=== PATIENT | female | born 1995 | race African-American/Black ===

== ENCOUNTER 2017-09-05 16:35 | Emergency (ER) | payer BC, OTHER ==
[~2017-09-05] VITALS: Ht 162.6 cm; Wt 123.9 kg
[~2017-09-05 16:35] MED LIST: FRRS300 MT; ONDA4TAB46 PO; PRENTAB26 PO; Proair HFA INH
[2017-09-05 16:41] VITALS: BP 133/79; PULSE 96; TEMP 37; O2SAT 99; Ht 162.6 cm; Wt 123.9 kg
--- NOTE | 2017-09-05 17:37 | DIAGNOSTIC IMAGING REPORT ---
LEFT AXILLARY ULTRASOUND CLINICAL HISTORY: Left axillary infection. COMPARISON STUDY: No previous studies for comparison. FINDINGS: There is a complex hypoechoic 22 x 12 x 21 mm left axillary lesion. There is mild peripheral vascularity. Diagnostic considerations include a pathologic lymph node or developing phlegmon/abscess. Clinical and imaging follow-up is recommended. IMPRESSION: 22 x 12 x 21 mm left axillary hypoechoic lesion, likely representing either a pathologic lymph node or developing abscess/phlegmon. Clinical follow-up is recommended. A repeat ultrasound subsequent to antibiotic therapy should be considered. Electronically signed by: Nazario Falk M.D. 09/05/2017 5:36 PM Dictated Date/Time: 09/05/2017 5:32 PM
[2017-09-05] MEDS ORDERED: CEPH500C2 PO (17:49)
[2017-09-05] MEDS ORDERED: CEPHALEXIN 500MG HOME PACK 1 EA BTL PO ONE (18:00)
--- NOTE | 2017-09-05 18:17 | EMERGENCY ROOM VISIT NOTE ---
History First contact with patient: 16:44 Chief Complaint: OTHER COMPLAINT Stated Complaint: PUSS COMING OF ARM History of Present Illness The patient is a 22 year old female who presents to the Emergency Room with complaints of pain and swelling to the left axilla states there has been minimal drainage from the area who has been squeezing out for the past few days. She states she has had problems with this before but has not seen a doctor for it. She is 29 weeks . Patient denies chest pain, dyspnea, numbness, tingling, fevers, nausea, vomiting or any other medical complaints. Tetanus is current. Review of Systems An 10 system review of systems was completed with positives and pertinent negatives listed in the HPI. Past Medical/Surgical History Medical Problems: (1) Bilateral lower extremity edema (2) labor in second trimester (3) uterine contractions in third trimester, antepartum Social History Smoking Status: Never Smoker Alcohol Use: none Drug Use: none Marital Status: single Housing Status: lives with family Current/Historical Medications Scheduled Cephalexin Monohydrate (Keflex), 500 MG PO QID Ferrous Sulfate (Ferrous Sulfate), 325 MG MT DAILYBB Multivit/Min/Iron/Fol Ac/Pren ( Vitamin), 1 TAB PO DAILY Scheduled PRN Ondansetron Hcl (Zofran), 4 MG PO Q4 PRN for Nausea [Proair HFA], 2 PUFFS INH UD PRN for Asthma Symptoms Physical Exam Vital Signs Date Time Temp Pulse Resp B/P (MAP) Pulse Ox O2 Delivery O2 Flow Rate FiO2 09/05/17 16:41 37.0 96 18 133/79 99 Room Air Physical Exam VITALS: Vitals are noted on the nurse's note and reviewed by myself. Vital signs stable. GENERAL: Pleasant female, in no acute distress, nondiaphoretic, well-developed well-nourished. SKIN: Capillary reflex less than 2 seconds. Left axilla tender to palpation with no fluctuance or active drainage with minimal erythema without lymphangitis. HEENT: Normocephalic. PERRLA. EOMI. Nares patent. Mucous membranes moist. Neck is supple without nuchal rigidity. HEART: Regular rate and rhythm without murmurs gallops or rubs. LUNGS: Clear to auscultation bilaterally without wheezes, rales or rhonchi. No retractions or accessory muscle use. ABDOMEN: Positive bowel sounds x 4. Normal tympanic percussion. Soft, 29 weeks , nontender, without masses or organomegaly. Kwong sign negative. No guarding or rebound tenderness. MUSCULOSKELETAL: No gross musculoskeletal defects. No pedal edema. No calf tenderness. NEURO: Patient was alert and oriented to person place and time. Normal sensation to light and sharp touch. No focal neurological deficits. Medical Decision & Procedures Medications Administered Medications (Trade) Dose Ordered Sig/Dario Route Start Time Stop Time Status Last Admin Dose Admin Cephalexin Monohydrate (Keflex 500MG Home Pack) 1 homepack NOW ONCE PO 09/05/17 18:00 09/05/17 18:01 DC 09/05/17 17:58 1 HOMEPACK ED Course Prior records reviewed and summarized as above. Triage Nursing notes reviewed. The patient's history was concerning for swelling and redness of the skin. Differential diagnosis: Etiologies such as HS, cellulitis, abscess, MRSA infection, DVT, necrotizing fasciitis, dermatitis, drug eruption, as well as others were entertained.. Physical examination: The physical examination was consistent with cellulitis ER treatment provided: Keflex On reassessment the patient felt better. Diagnostics interpreted by me: Imaging studies: LEFT AXILLARY ULTRASOUND CLINICAL HISTORY: Left axillary infection. COMPARISON STUDY: No previous studies for comparison. FINDINGS: There is a complex hypoechoic 22 x 12 x 21 mm left axillary lesion. There is mild peripheral vascularity. Diagnostic considerations include a pathologic lymph node or developing phlegmon/abscess. Clinical and imaging follow-up is recommended. IMPRESSION: 22 x 12 x 21 mm left axillary hypoechoic lesion, likely representing either a pathologic lymph node or developing abscess/phlegmon. Clinical follow-up is recommended. A repeat ultrasound subsequent to antibiotic therapy should be considered. Electronically signed by: Nazario Falk M.D. 09/05/2017 5:36 PM Dictated Date/Time: 09/05/2017 5:32 PM This appears to be cellulitis versus HS. patient states she has had this problem before. She has not seen a doctor for it. She has been squeezing at the area. There was no active drainage. Start antibiotics and advised to avoid touching the area and try warm compresses. She is advised follow-up family care in a few days here in the ER sooner for fevers, spreading infection , drainage, worsening signs or symptoms or as needed. By the evaluation outlined above emergent etiologies such as abscess, necrotizing fasciitis, DVT, as well as others were deemed relatively unlikely. The pt informed about the findings as listed above. All questions were answered and pleased with the treatment. Return instructions were outlined and the patient was discharged in stable condition. Outpatient prescription management: Keflex Referral: The patient was referred back to primary care physician for follow-up in 2 to 3 days for a recheck of the current condition. The chart was completed utilizing [employer] voice recognition software. Grammatical errors, random word insertions, pronoun errors, and incomplete sentences are an occassional consequence of this system due to software limitations, ambient noise, and hardware issues. Any formal questions or concerns about the content, text, or information contained within the body of this dictation should be directly addressed to the physician records assistant for clarification. Medical Decision As above Medication Reconcilliation Current Medication List: was personally reviewed by me Blood Pressure Screening Patient's blood pressure: Normal blood pressure Impression Primary Impression: Cellulitis of axilla, left Departure Information Dispostion Home / Self-Care Condition GOOD Prescriptions Cephalexin Monohydrate (KEFLEX) 500 Mg Cap 500 MG PO QID for 9 Days, #36 CAP Prov: Elzbieta Stern ., KWAKU 09/05/17 Forms WORK / SCHOOL INSTRUCTIONS, HOME CARE DOCUMENTATION FORM, IMPORTANT VISIT INFORMATION Patient Instructions Cellulitis - [facility], [facility] Additional Instructions Cephalexin(Keflex) 500mg: Take one pill four times daily for 10 days for your skin infection. All antibiotics can cause diarrhea. If this occurs and you feel worse or it does not resolve in 1-2 days follow up with your doctor or return to the Emergency Department as this could be signs of serious underlying problems. Any medication can cause an allergic reaction, stop the pills immediately and return to the ER for rash, hives, breathing difficulties, or swelling. Avoid touching the area. Do not squeeze at it. Acetaminophen(Tylenol) may be used for fever or pain. Use 1000mg every six hours as needed. Avoid using more than 4000mg in a 24 hour period. Warm compresses to the affected area 4 times daily for 15-20 minutes. Rest and drink plenty of fluids. Continue current medications. Return to the ER for severe pain, persistent fevers, spreading redness, or any worsening of your condition. Follow up with your primary physician within 2-3 days for a recheck of the current condition.
== END 2017-09-05 18:00 | disposition home or self-care (01) ==
LOC: C.EDB 16:37 → C.EDD 18:00
DX: L03.112 Cellulitis of left axilla (principal); Z3A.29 29 weeks gestation of pregnancy

== ENCOUNTER 2017-09-13 19:30 | Outpatient (CLI) | payer BC, OTHER ==
[~2017-09-13] VITALS: Ht 162.6 cm; Wt 128.6 kg
[~2017-09-13 19:30] MED LIST changes: +CEPH500C2 PO
[2017-09-13 20:05] VITALS: Ht 162.6 cm; Wt 128.6 kg
--- NOTE | 2017-09-13 21:29 | HISTORY & PHYSICAL EXAMINATION ---
DATE OF ADMISSION: 09/13/2017 CHIEF COMPLAINT: Intrauterine 30 weeks 1 day, absence of movement, recent fall. HISTORY OF PRESENT ILLNESS: The patient is a 22-year-old 11, para 2, EDC for this 11/21/2017, making her 30 weeks and 1 day. She has a history of cervical dysplasia being followed. OBSTETRICAL HISTORY: As follows, 2015 she had a girl, 7 pounds 4 ounce, emergency for nonreassuring heart rate tracing at 41+ weeks gestation. 2017, she had a boy, 6 pounds 8 ounces, repeat section at 39 weeks. States she fell out of bed about 11:00 a.m., fell on her left side. She was concerned because she did not feel the baby move. She tried drinking soda and sugar, could not get him to move. She did not complain of any leakage of fluids or bloody discharge and she called the answering service and was told to come to the hospital for evaluation. PAST MEDICAL HISTORY: Two children in good health. ALLERGIES: ALLERGIC TO LASIX. PAST SURGICAL HISTORY: She had wisdom teeth removed, had 2 , recently started antibiotics for an abscess in her left axilla. SOCIAL HISTORY: No smoking. No alcohol intake. Mostly ssbd-cy-etyn mom. FAMILY HISTORY: Mom is 58. She has had breast cancer recurrence. Father 50, diabetic, decreased eyesight. There are no biological brothers or sisters. REVIEW OF SYSTEMS: She does complain of migraine headaches. PHYSICAL EXAMINATION: GENERAL: Well-developed, well-nourished, 22-year-old black female, alert, oriented x3, and cooperative, in no acute distress, appears stated age. EYES: Conjunctivae are pink. Sclerae white. No evidence of jaundice. EARS: Had normal light reflex bilaterally. HEART: Had regular rhythm. S1, S2 are normal. NECK: Supple. Trachea midline. Thyroid is not enlarged. ABDOMEN: Consistent with 30-week . Well-healed Pfannenstiel scar. No abdominal tenderness. No CVA tenderness. MUSCULOSKELETAL: No calf tenderness. IMPRESSIONS OF THIS CASE: Recent fall. History of 2 previous sections and decreased movement.
--- NOTE | 2017-09-13 22:49 | DIAGNOSTIC IMAGING REPORT ---
LTD 1 OR MORE FETUSES CLINICAL HISTORY: Cervical Length/ fluid levels TECHNIQUE: Ultrasound COMPARISON STUDY: None FINDINGS: Single, viable intrauterine . Breech presentation. heart rate 1 43 bpm. Maternal cervix is closed. Length is 4.4 cm. Amniotic fluid index 16 cm. Distended gestational age is 31 weeks. Posterior placenta. IMPRESSION: 1. Single, viable intrauterine of approximately 31 weeks gestational age. 2. Breech presentation. 3. The maternal cervix is closed having a length of 4.4 cm.. 4. Amniotic fluid index 16.1. 5. heart rate is confirmed at 143 bpm The above report was generated using voice recognition software. It may contain grammatical, syntax or spelling errors. Electronically signed by: Cortez Webster M.D. 09/13/2017 10:47 PM Dictated Date/Time: 09/13/2017 10:45 PM
== END 2017-09-13 23:03 | disposition home or self-care (01) ==
LOC: C.LD 19:30 → C.OPB 19:30
PROVIDERS: ATTEND Obstetrics & Gynecology
DX: O12.02 Gestational edema, second trimester (principal); O62.9 Abnormality of forces of labor, unspecified; Z3A.28 28 weeks gestation of pregnancy

== ENCOUNTER 2017-09-18 01:51 | Emergency (ER) | payer BC, OTHER ==
[~2017-09-18] VITALS: Ht 162.6 cm; Wt 121.3 kg
[~2017-09-18 01:51] MED LIST changes: -CEPH500C2 PO
[2017-09-18 01:54] VITALS: TEMP 36.8; Ht 162.6 cm; Wt 121.3 kg
[2017-09-18] MEDS ORDERED: LIDOCAINE 1% BUFFERED INJ 20 ML VIAL ONE (02:07)
[2017-09-18] MEDS ORDERED: PRENTAB26 PO (02:11)
[2017-09-18] MEDS ORDERED: ONDA4TAB46 PO (02:12)
[2017-09-18] MEDS ORDERED: CEPH500C2 PO (02:17)
--- NOTE | 2017-09-18 02:27 | EMERGENCY ROOM VISIT NOTE ---
ED Visit Note First contact with patient: 02:03 CHIEF COMPLAINT: Infection of the left axilla HISTORY OF PRESENT ILLNESS: This 22-year-old patient presents to the emergency department after they noticed a hard, red, tender area left axilla has gotten progressively worse over the past 2 weeks he was seen here last week and started on Keflex. It is slowly getting larger, more painful and tender. No fever, chills, or loss of appetite. There has been drainage from the area. There was no injury to the area preceding the infection. They rate the pain as mild and 2/10. Tetanus shot is up to date. They have tried squeezing at it. The patient is not diabetic. The patient has not had a history of subcutaneous abscesses. Patient is 30 weeks . REVIEW OF SYSTEMS: A review of systems was performed with positives and pertinent negatives listed in the history of present illness. All other systems were reviewed and are negative. ALLERGIES: Latex MEDICATIONS: PMH: Reviewed SOCIAL HISTORY: No drug use PHYSICAL EXAM: Vital Signs: Reviewed Nurse's notes, vital signs stable. GENERAL : Pleasant female, no acute distress, non toxic in appearance, well-developed well-nourished. SKIN: There is an erythematous indurated area left axillary which measures about 2 cm in diameter. It is fluctuant but there is no pointing or drainage. There is a zone of inflammation around it but no lymphangitis. Capillary refill less than 2 seconds. MUSCULOSKELETAL: There is no limitation of the range of motion of the arm. EMERGENCY DEPARTMENT COURSE: I examined the patient. After saline and Betadine cleansing and 2 mL of 1% buffered lidocaine anesthesia, the abscess was incised with a number 11 scalpel blade. A large amount of purulent material was released with more expressed by pressure. A swab was obtained for culture. The abscess cavity was further probed with a needle light truck driver and the deep pocket expressed. The abscess cavity was then copiously irrigated with sterile saline under pressure. The area was then packed with iodoform soaked packing. The area was cleaned with sterile saline and dressed with bulky bandage. The patient tolerated the procedure well. Patient was advised to follow-up in 2 days with the family care doctor for wound recheck and packing. She was advised not to open up the packing container that is given to her in the ER and bring this to her appointment. She is advised to return to ER immediately for fevers, spreading infection, worsening signs or symptoms or as needed. She is advised to continue her antibiotics. Bedside ultrasound shows active fetus. This was shown to the patient. The patient was discharged home in stable condition. DIAGNOSIS: Abscess of the left axillary DISCHARGE INSTRUCTIONS & TREATMENT: As below Current/Historical Medications Scheduled Cephalexin Monohydrate (Keflex), 500 MG PO QID Multivit/Min/Iron/Fol Ac/Pren ( Vitamin), 1 TAB PO DAILY Scheduled PRN Ondansetron Hcl (Zofran), 4 MG PO Q4H PRN for Nausea Allergies Coded Allergies: Latex (Verified Allergy, Intermediate, Swelling,itchiness and hives, ) Vital Signs Date Time Temp Pulse Resp B/P (MAP) Pulse Ox O2 Delivery O2 Flow Rate FiO2 09/18/17 01:54 36.8 100 18 130/81 98 Room Air Departure Information Impression Primary Impression: Abscess of axilla, left Dispostion Home / Self-Care Condition GOOD Forms WORK / SCHOOL INSTRUCTIONS, HOME CARE DOCUMENTATION FORM, IMPORTANT VISIT INFORMATION Patient Instructions [facility], ED Abscess IandD Additional Instructions Frequently change outer dressing. Leave inner dressing in place. Continue Keflex. Acetaminophen(Tylenol) may be used for fever or pain. Use 1000mg every six hours as needed. Avoid using more than 3000mg in a 24 hour period. Do not open up the packing that was given to you in the ER. Bring this to your follow-up appointment. Rest and drink plenty of fluids. Continue current medications. Return to the ER for severe pain, persistent fevers, spreading redness, or any worsening of your condition. Follow up with your primary physician within 2-3 days for a recheck of the current condition and wound repacking.
[2017-09-18 02:34] VITALS: BP 136/62; PULSE 80; O2SAT 98
== END 2017-09-18 02:34 | disposition home or self-care (01) ==
LOC: C.EDB 01:52
DX: O99.89 Other specified diseases and conditions complicating pregnancy, childbirth and the puerperium (principal); L02.412 Cutaneous abscess of left axilla; Z3A.30 30 weeks gestation of pregnancy; Z91.040 Latex allergy status